=== PATIENT | female | born 1980 | race Caucasian/White ===

== ENCOUNTER 2017-02-27 05:49 | Day surgery (SDC) | payer BC ==
--- NOTE | 2017-02-20 19:16 | GHP ---
[f rep st] PREOP HISTORY AND PHYSICAL DATE OF ADMISSION: 02/27/2017 DATE OF PLANNED PROCEDURE: 02/27/2017. PLANNED PROCEDURE: Removal of IUD with possible hysteroscopy. INDICATIONS: Patient is a 36-year-old, 0, who has had a Mirena IUD in place for the last 5 years. The patient had it placed in 02/2012. She presented for her annual exam on 02/19/2017 and planned on having an IUD removed and a new one placed. The patient knew that the IUD strings were short and likely in the endocervical canal. She had an ultrasound last year confirming that the IUD was in place, and it was, in fact, in place when she presented for her exam. Today, the humanities and languages professor was not able to remove the IUD. She called me in the room, and I did a pelvic exam and the uterus felt anteverted on speculum exam, no strings were visualized, and narrow curved. Hemostat was used to try to grasp the strings, and I was not able to do so. The bedside ultrasound was performed by the semiconductor lab technician, and we tried to remove the strings with ultrasound guidance; however, we were not able to do so. We had a long discussion about management options of continuing to attempt to remove it in the office versus having the patient return and doing under ultrasound guidance with Valium and pain medicine on board versus going to the operating room. The patient is electing to go to the operating room. She will go to the operative operating room and have IV sedation, and I will try to IUD at that time. If I am not able to remove them when patient is comfortable, I will do a hysteroscopy and remove the IUD directly. Risks and benefits have been reviewed with the patient. The patient will have an IUD placed at her 2- week postop visit. MEDICAL HISTORY: Unremarkable. MEDICATIONS: Mirena IUD. SURGICAL HISTORY: Repair of pyloric stenosis and appendectomy. ALLERGIES: No known drug allergies. SOCIAL HISTORY: The patient is in a long-term monogamous relationship. She denies tobacco or drug use. She does drink alcoholic beverages occasionally. FAMILY MEDICAL HISTORY: Noncontributory. 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 Periods are every 28 days and very light secondary to the Mirena. The patient does have a remote history of abnormal Pap smears. She does not have any history of any procedures done on her cervix , and repeat Paps have all been negative. REVIEW OF SYSTEMS: 10-point review of systems is negative. PHYSICAL EXAMINATION: VITAL SIGNS: Stable. GENERAL APPEARANCE: Alert and oriented x3. PSYCH: She has appropriate affect. NECK: Mobile and supple. LUNGS: Clear to auscultation bilaterally. HEART: Rate is regular . ABDOMEN: Soft, nondistended, nontender. No organomegaly is noted. EXTREMITIES: No calf tenderness or edema. PELVIC: A mobile midposition uterus with no adnexal masses. Pelvic ultrasound was obtained today which showed an IUD in the normal placement at the top of the uterus in the endometrium. ASSESSMENT AND PLAN: A 36-year-old 0 with an IUD in place that is not able to be removed in the office. Will try to do it when the patient is comfortable in the operating room, and if not, I will do a hysteroscopy with removal of the IUD. Risks and benefits and alternatives have been reviewed extensively with the patient, and the patient has been properly consented. /[id number]/MODL MTDD
[2017-02-27] MEDS ORDERED: LIDOCAINE 1% 2 ML INJ ID PRN (06:08)
[2017-02-27] MEDS ORDERED: LR 1,000 ML IV ONE (06:08)
[2017-02-27] MEDS ORDERED: LIDOCAINE 1% 2 ML INJ ONE (06:11)
[2017-02-27] MEDS ORDERED: MIDAZOLAM 2 MG/2 ML VIAL IVP ONE (06:53)
--- NOTE | 2017-02-27 06:56 | PDANEPAE ---
ANE Past Medical History - Cardiovascular History Hx Hypertension: No Hx Arrhythmias: No Hx Chest Pain: No Hx Coronary Artery / Peripheral Vascular Disease: No Hx CHF / Valvular Disease: No Hx Palpitations: No - Pulmonary History Hx COPD: No Hx Asthma/Reactive Airway Disease: No Hx Recent Upper Respiratory Infection: No Hx Oxygen in Use at Home: No Hx Sleep Apnea: No Sleep Apnea Screening Result - Last Documented: Negative - Neurologic History Hx Cerebrovascular Accident: No Hx Seizures: No Hx Dementia: No - Endocrine History Hx Diabetes: No - Renal History Hx Renal Disorders: No - Liver History Hx Hepatic Disorders: No - Neurological & Psychiatric Hx Hx Neurological and Psychiatric Disorders: No - Cancer History Hx Cancer: No - Congenital Disorder History Hx Congenital Disorders: No - GI History Hx Gastrointestinal Disorders: No - Other Health History Other Health History: none - Chronic Pain History Chronic Pain: No - Surgical History Prior Surgeries: pyloric stenosis surgery at 2 mo old. appy 02/2015 ANE Review of Systems - Exercise capacity METS (RN): 4 METS ANE Patient History - Allergies Allergies/Adverse Reactions: No Known Allergies Allergy (Verified 02/25/17 15:22) - Home Medications Home Medications: NK [No Known Home Meds] 02/25/17 [Last Taken Unknown] - NPO status NPO Since - Liquids (Date): 02/26/17 NPO Since - Liquids (Time): 22:30 NPO Since - Solids (Date): 02/26/17 NPO Since - Solids (Time): 21:15 - Smoking Hx Smoking Status: Never smoked - Family Anes Hx Family Hx Anesthesia Complications: none ANE Labs/Vital Signs - Vital Signs Blood Pressure: 97/59 Heart Rate: 56 Respiratory Rate: 16 O2 Sat (%): 97 Height: 167.64 cm Weight: 61.235 kg ANE Physical Exam - Airway Neck exam: FROM Mallampati Score: Class 1 Mouth exam: normal dental/mouth exam - Pulmonary Pulmonary: no respiratory distress, no rales or rhonchi, clear to auscultation - Cardiovascular Cardiovascular: regular rate and rhythym, no murmur, rub, or gallop - ASA Status ASA Status: I ANE Anesthesia Plan Anesthesia Plan: GA w LMA
[2017-02-27] MEDS ORDERED: fentaNYL 100 MCG/2 ML INJ ONE (07:03)
[2017-02-27] MEDS ORDERED: PROPOFOL 200 MG/20 ML VIAL ONE (07:04)
[2017-02-27] MEDS ORDERED: DEXAMETHASONE 4 MG/ML VIAL ONE (07:05)
[2017-02-27] MEDS ORDERED: LIDOCAINE 2% 5 ML SDV ONE (07:05)
[2017-02-27] MEDS ORDERED: ONDANSETRON 4 MG/2 ML VIAL ONE (07:06)
[2017-02-27] MEDS ORDERED: SILVER NITRATE APPLICATOR 1 APPL TP ONE (07:12)
--- NOTE | 2017-02-27 07:15 | PDHPUP ---
History & Physical Update H&P update statement: This history and physical update is based on an assessment of the patient which was completed after admission or registration (within 24 hours), but prior to the surgery/procedure. H&P update: H&P reviewed & patient examined, no change in patient's condition since H&P completed
[2017-02-27] MEDS ORDERED: NALOXONE HCL 0.4 MG/ML INJ IVP PRN (07:21)
[2017-02-27] MEDS ORDERED: LR 500 ML IV PRN (07:31)
[2017-02-27] MEDS ORDERED: HYDROCODONE/APAP 5/325 TAB PO PRN (07:31)
[2017-02-27] MEDS ORDERED: MEPERIDINE 25 MG/ML SYR IVP PRN (07:31)
[2017-02-27] MEDS ORDERED: fentaNYL 100 MCG/2 ML INJ IVP PRN (07:31)
[2017-02-27] MEDS ORDERED: ONDANSETRON 4 MG/2 ML VIAL IVP PRN (07:31)
[2017-02-27] MEDS ORDERED: ACETAMINOPHEN 500 MG TAB PO PRN (07:31)
[2017-02-27] MEDS ORDERED: METOCLOPRAMIDE 10 MG/2 ML VIAL IVP PRN (07:31)
[2017-02-27] MEDS ORDERED: PROMETHAZINE HCL 25 MG/ML INJ IVP PRN (07:31)
--- NOTE | 2017-02-27 07:55 | POSTANESTH ---
Post Anesthetic Evaluation Cardiovascular Status: Normal, Stable, Similar to Pre-Op Cond Respiratory Status: Normal, Stable, Similar to Pre-op Cond. Level of Consciousness/Mental Status: Can Participate in Eval, Mildly Sleepy, Arousable Pain Control: Adequate, Prn Tx Ordered Nausea/Vomiting Control: Adequate, Prn Tx Ordered Complications Possibly Related to Anesthesia: None Noted
[2017-02-27 08:20] VITALS: TEMP 96.8
[2017-02-27 08:24] VITALS: BP 102/84; PULSE 51; RESP 12; O2SAT 95
--- NOTE | 2017-02-27 08:33 | GOP ---
[f rep st] OPERATIVE REPORT DATE OF OPERATION: 02/27/2017 SURGEON: Candace Rodriguez, ANESTHESIA: Sedation with bag mask. ANESTHESIOLOGIST: Dr. Herrera. PREOPERATIVE DIAGNOSIS: Retained intrauterine device. POSTOPERATIVE DIAGNOSIS: Retained intrauterine device. PROCEDURE PERFORMED: Dilation of cervix and removal of intrauterine device FINDINGS: Exam under anesthesia: Mobile, midposition uterus with no adnexal masses. SPECIMENS: None. ESTIMATED BLOOD LOSS: 5 cc. INDICATIONS: Patient is a 36-year-old, 0, who has had a Mirena IUD for the last 5 years. S he had it placed in 02/2012. She presented for her annual exam on 02/19/2017, and planned to have a n IUD removed and new one placed. The patient knew that the IUD strings were short and had the IUD location confirmed by pelvic ultrasound previously. We attempted multiple passes in the office to t ry to remove the IUD, with instruments, out through the cervix, but we were not able to grasp the st rings. We even tried doing with ultrasound guidance. Options were reviewed with the patient, and d ecision was made to proceed with doing this in the operating room, and possibly hysteroscopy if nanette cated. Risks and benefits have been reviewed with the patient. The patient has been properly conse nted. DESCRIPTION OF PROCEDURE: The patient was taken to the operating room, and placed on the operating table in the dorsal supine position, where sedation with bag mask was obtained. She was then reposi tioned into the dorsal lithotomy position with the Yellofin stirrups, and prepped and draped in a no rmal sterile fashion. Exam under anesthesia revealed a mobile, mid position uterus with no adnexal masses. The speculum was then placed in the patient's vagina. An Allis tooth was used to grasp the anterior lip of the cervix, and then the cervix was dilated. A curved Sanjuana was then introduced, and the IU D strings were able to be grasped, and the IUD was removed without difficulty, and with no need for excessive tension. The instruments were then removed from the patient's vagina. The patient was re turned to the dorsal supine position, where she was easily awoken from anesthesia. Sponge count was correct. The patient was transferred to the recovery room in stable condition. /[id number]/MODL
== END 2017-02-27 08:55 | disposition home or self-care (01) ==
LOC: FSGY 05:49
PROVIDERS: ATTEND Obstetrics & Gynecology
PROC: 0UPD7HZ Removal of Contraceptive Device from Uterus and Cervix, Via Natural or Artificial Opening (ICD-10-PCS; principal; 2017-02-27 07:15)
DX: Z30.432 Encounter for removal of intrauterine contraceptive device (principal)
CPT/HCPCS: J1100; J2250; J2405; J2704; J3010